=== PATIENT | male | born 1970 | race Caucasian/White ===

== ENCOUNTER 2020-08-23 17:19 | Emergency (ER) | payer OTHER ==
[~2020-08-23] VITALS: Ht 165.1 cm; Wt 77.2 kg
[2020-08-23 17:34] VITALS: Ht 165.1 cm; Wt 77.2 kg
[2020-08-23 19:50] VITALS: BP 123/75
== END 2020-08-23 19:50 | disposition home or self-care (01) ==
LOC: ED 17:19
DX: H81.10 Benign paroxysmal vertigo, unspecified ear (principal)
CPT/HCPCS: J8597; Q0162